=== PATIENT | female | born 1985 | race African-American/Black ===

== ENCOUNTER → 2016-07-02 | Outpatient (CLI) | payer BC ==
--- NOTE | 2016-07-02 16:53 | DIAGNOSTIC IMAGING REPORT ---
RIGHT FOOT MIN 3 VIEWS ROUTINE CLINICAL HISTORY: PAIN IN UNSPECIFIED TOE(S) Right COMPARISON: None. DISCUSSION: The bones and joint spaces appear intact. There is no evidence of fracture, dislocation or bony disease. There is no evidence for soft tissue swelling. IMPRESSION: Negative study. Electronically signed by: Graham Barrios M.D. 07/02/2016 4:52 PM Dictated Date/Time: 07/02/2016 4:50 PM
== END | disposition home or self-care (01) ==
LOC: C.RAD1850 16:02
PROVIDERS: ATTEND Family Medicine
DX: M79.674 Pain in right toe(s) (principal)